=== PATIENT | female | born 1995 | race Caucasian/White ===

== ENCOUNTER 2018-06-03 19:28 | Emergency (ER) | payer OTHER ==
--- NOTE | 2018-06-03 19:44 | PDOC ---
[facility] Medical Evaluation: Allergies Allergy/AdvReac Type Severity Reaction Status Date / Time No Known Allergies Allergy Verified 03/13/14 11:26 I have performed a brief in-person evaluation of this patient. The patient presents with a chief complaint of: C/o R lower rib pain extending to back since 4 days ago. Went to PCP who was concerned that gallbladder may be affected so sent to ED for ultrasound. Denies fever, sob, n/v/d, urinary complaints Pertinent physical exam findings: +R upper chest wall TTP; abdominal exam limited as patient seated in chair but with some RUQ TTP as well; appears in NAD I have ordered the following: Labs, ultrasound The patient will proceed to the ED for further evaluation. 06/03/18 19:40
[2018-06-03 19:45] VITALS: BP 120/71; PULSE 117; TEMP 100; BMI 18.8
[2018-06-03] MEDS ORDERED: ACETAMINOPHEN 325 MG TABLET (FP) PO ONE (19:45)
[2018-06-03] MEDS ORDERED: ACETAMINOPHEN 325 MG TABLET (FP) ONE (19:57)
[2018-06-03 20:20] LABS: BASO % 0.3 % (0-2.0); EOS % 0.1 % (0-4.5); HEMATOCRIT 38.8 % (32.4-45.2); HEMOGLOBIN 13.3 GM/dL (10.7-15.3); LYMPH % 8.5 % (8-40); MCH 30.1 pg (25.7-33.7); MCHC 34.2 g/dl (32.0-36.0); MEAN PLT VOLUME 9.5 fl (7.5-11.1); MONO % 10.6 % (3.8-10.2); NEUT % 80.5 % (42.8-82.8); PLATELET COUNT 224 K/MM3 (134-434); RDW 13.8 % (11.6-15.6); WHITE BLOOD COUNT 14.6 K/mm3 (4.0-10.0)
[2018-06-03 20:34] LABS: ALBUMIN 4.8 g/dl (3.4-5.0); ALK PHOS 91 U/L (45-117); ANION GAP 6 MMOL/L (8-16); BILIRUBIN,TOTAL 0.6 mg/dL (0.2-1); BLOOD UREA NITROGEN 7 mg/dL (7-18); CALCIUM 9.3 mg/dL (8.5-10.1); CHLORIDE 101 mmol/L (98-107); CO2 27 mmol/L (21-32); CREATININE 0.5 mg/dL (0.55-1.3); GLUCOSE,RANDOM 104 mg/dL (74-106); POTASSIUM 3.7 mmol/L (3.5-5.1); SGOT/AST 21 U/L (15-37); SGPT/ALT 19 U/L (13-61); SODIUM 134 mmol/L (136-145); TOT PROT 8.7 g/dl (6.4-8.2)
[2018-06-03 20:40] LABS: URINE APPEARANCE SLCLOUDY; URINE BILIRUBIN NEGATIVE (<2.0 mg/dL); URINE COLOR YELLOW; URINE GLUCOSE (UA) NEGATIVE (NEGATIVE); URINE KETONE 2+ (NEGATIVE); URINE LEUK ESTERASE 2+ (NEGATIVE); URINE NITRITE NEGATIVE (NEGATIVE); URINE PROTEIN 1+ (NEGATIVE)
[2018-06-03 20:42] LABS: HCG,QUALITATIVE URINE Negative
[2018-06-03 20:44] LABS: EPI CELLS FEW /HPF (FEW); URINE BACTERIA FEW /hpf (NONE SEEN); URINE MUCUS FEW
--- NOTE | 2018-06-03 22:23 | PDOC ---
History of Present Illness - General Chief Complaint: Pain Stated Complaint: PCP SENT/UPPER ABDOMINAL PAIN Time Seen by Provider: 06/03/18 21:27 History Source: Patient Exam Limitations: No Limitations - History of Present Illness Travel History: No Initial Comments: 06/03/18 22:15 HISTORY OF PRESENT ILLNESS: 23-year-old woman presents to the emergency department for evaluation of right upper quadrant pain which is been persistent for the past 5 days. Patient states she was seen at [facility] and was evaluated by her primary doctor. Patient states her primary doctors when his symptoms emergency department for evaluation of gallbladder disease. Patient denies any fevers, chills, difficulty eating, aggravating or alleviating factors, dysuria, vaginal bleeding, vaginal discharge, rectal bleeding, constipation, diarrhea. No recent travel or sick contacts. PAST MEDICAL HISTORY: Denies past medical history SURGICAL HISTORY: Appendectomy ALLERGIES: No known drug allergies REVIEW OF SYSTEMS General/Constitutional: Denies fever or chills. Denies weakness, weight change. HEENT: Denies change in vision. Denies ear pain or discharge. Denies sore throat. Cardiovascular: Denies chest pain or shortness of breath. Respiratory: Denies cough, wheezing, or hemoptysis. Gastrointestinal: Denies nausea, vomiting, diarrhea or constipation. Denies rectal bleeding. RUQ pain. Genitourinary: Denies dysuria, frequency, or change in urination. Musculoskeletal: Denies joint or muscle swelling or pain. Denies neck or back pain. Skin and breasts: Denies rash or easy bruising. Neurologic: Denies headache, vertigo, loss of consciousness, or loss of sensation. Psychiatric: Denies depression or anxiety. Endocrine: Denies increased thirst. Denies abnormal weight change. Hematologic/Lymphatic: Denies anemia, easy bleeding, or history of blood clots. Allergic/Immunologic: Denies hives or skin allergy. Denies latex allergy. PHYSICAL EXAM General Appearance: Well-appearing, appropriately dressed. No apparent distress , no intoxication. Respiratory/Chest: Lungs CTAB. No shortness of breath, chest tenderness, respiratory distress, accessory muscle use. No crackles, rales, rhonchi, stridor , wheezing, dullness Cardiovascular: RRR. S1, S2. No JVD, murmur, bradycardia, tachycardia. Vascular Pulses: Dorsalis-Pedis (R): 2+, Dorsalis-Pedis (L): 2+ Gastrointestinal/Abdominal: Normal bowel sounds. Abdomen soft, non-distended. RUQ tenderness. No rebound tenderness. No organomegaly, pulsatile mass, guarding , hernia, hepatomegaly, splenomegaly. Musculoskeletal/Extremities: Normal inspection. FROM of all extremities, normal capillary refill. Pelvis Stable. Right CVA tenderness. No tenderness to extremities, pedal edema, swelling, erythema or deformity. Past History - Past Medical History Allergies/Adverse Reactions: Allergies Allergy/AdvReac Type Severity Reaction Status Date / Time No Known Allergies Allergy Verified 06/03/18 19:45 Home Medications: Ambulatory Orders Mag Hydrox/Al Hydrox/Simeth [Mylanta Liquid] 150 ml PO Q6H PRN #150 ml 03/13/14 Ranitidine [Zantac -] 150 mg PO BID #10 tablet 03/13/14 Cephalexin Monohydrate [Keflex -] 500 mg PO Q8H #30 capsule 06/04/18 - Surgical History Appendectomy: Yes - Suicide/Smoking/Psychosocial Hx Smoking History: Never smoked Have you smoked in the past 12 months: No Information on smoking cessation initiated: No Hx Alcohol Use: No Drug/Substance Use Hx: No Substance Use Type: None *Physical Exam - Vital Signs Last Vital Signs Temp Pulse Resp BP Pulse Ox 100 F H 117 H 18 120/71 98 06/03/18 19:41 06/03/18 19:41 06/03/18 19:41 06/03/18 19:41 06/03/18 19:41 Moderate Sedation - Procedure Monitoring Vital Signs: Procedure Monitoring Vital Signs Temperature 100 F H 06/03/18 19:41 Pulse Rate 117 H 06/03/18 19:41 Respiratory Rate 18 06/03/18 19:41 Blood Pressure 120/71 06/03/18 19:41 O2 Sat by Pulse Oximetry (%) 98 06/03/18 19:41 ED Treatment Course - LABORATORY CBC & Chemistry Diagram: 06/03/18 19:53 06/03/18 19:53 - ADDITIONAL ORDERS Additional order review: Laboratory Results 06/03/18 06/03/18 06/03/18 20:20 19:53 19:53 Sodium 134 L Potassium 3.7 Chloride 101 Carbon Dioxide 27 Anion Gap 6 L BUN 7 Creatinine 0.5 L Creat Clearance w eGFR > 60 Random Glucose 104 Calcium 9.3 Total Bilirubin 0.6 AST 21 ALT 19 Alkaline Phosphatase 91 Total Protein 8.7 H Albumin 4.8 Lipase 95 Urine Color Yellow Urine Appearance Slcloudy Urine pH 6.0 Ur Specific [place] 1.023 Urine Protein 1+ H Urine Glucose (UA) Negative Urine Ketones 2+ H Urine Blood 2+ H Urine Nitrite Negative Urine Bilirubin Negative Urine Urobilinogen 2.0 H Ur Leukocyte Esterase 2+ H Urine WBC (Auto) 55 Urine RBC (Auto) 80 Ur Epithelial Cells Few Urine Bacteria Few Urine Mucus Few Urine HCG, Qual Negative 06/03/18 19:53 RBC 4.40 MCV 88.0 MCHC 34.2 RDW 13.8 MPV 9.5 Neutrophils % 80.5 Lymphocytes % 8.5 Monocytes % 10.6 H Eosinophils % 0.1 Basophils % 0.3 - Medications Given in the ED: ED Medications Discontinued Medications Generic Name Dose Route Start Last Admin Trade Name Freq PRN Reason Stop Dose Admin Acetaminophen 650 mg 06/03/18 19:45 06/03/18 20:00 Tylenol - PO 06/03/18 19:46 650 mg ONCE ONE Administration Medical Decision Making - Medical Decision Making 06/03/18 22:23 A/P: 23-year-old woman with right upper quadrant pain for 4 days Right upper quadrant tenderness noted No guarding present Remainder of abdomen is benign Right CVA tenderness present Laboratory and urine testing done at [facility] reveals WBC of 14.6 without shift, BUN and creatinine is 7/0.5, urinalysis with 1+ protein, 2+ ketones, 2+ blood, 2+ leuk esterase, 55 WBC and 80 rbc's. Abdominal ultrasound as read by Dr. Aguila: No definite gallbladder calculus is seen. The gallbladder pills mildly contracted which could be a physiologic basis. No gallbladder wall edema or pericholecystic fluid is identified. The, bile duct diameter appears unremarkable measuring 0.3 cm The liver, right kidney and partially visualized pancreas demonstrate no sonographic abnormality. No free intraperitoneal fluid is noted. Impression: There is no sonographic evidence of acute cholecystitis. Gallbladder pills mildly contracted which may be on a physiologic basis (and less likely on the basis of chronic cholecystitis). No definite gallbladder calculus is seen along for mild limiting call bladder contraction. If clinically indicated correlate with 2 week follow-up sonography with optimal preoperative testing. No biliary tract dilatation is identified. Given CVA tenderness and urinalysis, I will collect a urine culture and spiral CT. 06/03/18 23:55 CAT scan is read by imaging continuity tester: Multiple bilateral renal stones present Ceftriaxone 1 g. I will discharge the patient home which you follow-up and continue with Keflex 500 3 times a day *DC/Admit/Observation/Transfer Diagnosis at time of Disposition: Pyelonephritis - Discharge Dispostion Disposition: HOME Condition at time of disposition: Stable Decision to Admit order: No - Prescriptions Prescriptions: Cephalexin Monohydrate [Keflex -] 500 mg PO Q8H #30 capsule - Referrals Referrals: Rasheeda Wilkinson MD [Primary Care Provider] - Bravo Augustin MD [Staff Physician] - - Patient Instructions Additional Instructions: Rest, drink lots of fluids: Teas, water, soups Avoid contact with others until fevers and symptoms resolved Lots of handwashing and good hygiene Continue [id number] medications for symptomatic relief Tylenol or Motrin for fever and pain Continue all of antibiotics until completed Followup with private physician in one week for repeat urinalysis/reevaluation Return to emergency department for worsened symptoms, fevers, dehydration - Post Discharge Activity
[2018-06-03] MEDS ORDERED: CEFTRIAXONE 1,000 MG in DEXTROSE 5%-WATER - 50 ML IVPB ONE (23:44)
[2018-06-04] MEDS ORDERED: CEFTRIAXONE 1 GM/50 ML BAG ONE (00:20)
== END 2018-06-04 01:11 | disposition home or self-care (01) ==
LOC: JER 19:28
DX: N12 Tubulo-interstitial nephritis, not specified as acute or chronic (principal)
CPT/HCPCS: 36415; 74176; 76705-TC; 80053; 81003; 81015; 83690; 84703; 85025; 87086; 87186; 99283-25

== ENCOUNTER 2022-01-04 22:48 | Emergency (ER) | payer OTHER ==
[2022-01-04 22:58] VITALS: BMI 20.4
[2022-01-04] MEDS ORDERED: ACETAMINOPHEN 500 MG TABLET (FP) PO ONE (23:56)
[2022-01-05] MEDS ORDERED: ACETAMINOPHEN 325 MG TABLET (FP) ONE (00:08)
[2022-01-05 02:06] VITALS: BP 112/66; PULSE 68; RESP 19; TEMP 98.4
== END 2022-01-05 02:30 | disposition home or self-care (01) ==
LOC: JER 22:48
DX: S96.911A Strain of unspecified muscle and tendon at ankle and foot level, right foot, initial encounter (principal); X50.0XXA Overexertion from strenuous movement or load, initial encounter
CPT/HCPCS: 73610-TC-RT-FY; 73630-TC-RT-FY; 99283-25